=== PATIENT | female | born 1950 | race Caucasian/White ===

== ENCOUNTER → 2017-03-14 | Outpatient (CLI) | payer OTHER ==
[~2017-03-14] MED LIST: ALLEGRA180 MG PO; BACTRIM DS TAB1 EACH PO; CARDIZEM SR120 MG PO; CIPROFLOXACIN500 M1 PO; CYCLOBENZAPRINE10 MG PO; DIAZEPAM 10 MG10 M1 OR; DOXEPIN 10 MG C10 MG; FLUOXETINE HCL40 MG PO; LANTUS SC; NASONEX; NEO-POLYMYXIN-H10 ML OT; NORCO 5-325 TA1 EACH PO; PROZAC 20 MG20 M1 PO; PYRIDIUM200 MG PO; VICODIN; XALATAN2.5 ML OP
== END ==
LOC: CAT 11:49
DX: M81.0 Age-related osteoporosis without current pathological fracture (principal); I63.9 Cerebral infarction, unspecified; G31.9 Degenerative disease of nervous system, unspecified; M25.511 Pain in right shoulder; M79.641 Pain in right hand; R58 Hemorrhage, not elsewhere classified

== ENCOUNTER → 2017-11-12 | Outpatient (CLI) | payer OTHER | LOC: ULTRA 11:47 | DX: E01.0 Iodine-deficiency related diffuse (endemic) goiter (principal); R59.9 Enlarged lymph nodes, unspecified ==

== ENCOUNTER → 2018-02-11 | Outpatient (CLI) | payer OTHER | LOC: RAD 01:07 | DX: N63.10 Unspecified lump in the right breast, unspecified quadrant (principal); R92.2 Inconclusive mammogram; E11.9 Type 2 diabetes mellitus without complications; J45.909 Unspecified asthma, uncomplicated ==

== ENCOUNTER 2018-12-11 12:10 | Emergency (ER) | payer OTHER ==
[~2018-12-11] VITALS: Ht 147.3 cm; Wt 61.2 kg
[2018-12-11 12:50] LABS: BASOPHILS 0.7 % (0.0-2.0); EOSINOPHILS 0.5 % (0.0-3.0); HEMATOCRIT 38.7 % (37.0-47.0); HEMOGLOBIN 13.3 gm/dL (12.0-15.0); LYMPHOCYTES 41.9 % (24.0-44.0); MCH 30.3 pg (26.0-34.0); MCHC 34.4 g/dL (28.0-37.0); MCV 88.3 fL (80.0-100.0); PLATELET COUNT 327 thou/uL (150-400); POLYS 49.9 % (36.0-66.0); RBC 4.38 mil/uL (4.20-5.00); WBC 6.1 thou/uL (4.0-11.0)
[2018-12-11 13:00] LABS: ANION GAP 8 mmol/L (7-16); BUN 12 mg/dL (7-18); CALCIUM 9.2 mg/dL (8.5-10.1); CHLORIDE 99 mmol/L (98-107); CO2 27 mmol/L (21-32); CREATININE 0.8 mg/dL (0.6-1.0); GLUCOSE 136 mg/dL (74-106); POTASSIUM 3.5 mmol/L (3.5-5.1); SODIUM 134 mmol/L (136-145)
[2018-12-11 13:10] LABS: ALBUMIN 4.3 g/dL (3.4-5.0); SGOT 18 U/L (15-37); SGPT 20 U/L (30-65); TOTAL BILIRUBIN 0.2 mg/dL (<0.1-1.0); TOTAL PROTEIN 8.1 g/dL (6.4-8.2); TROPONIN-I <0.06 ng/mL (<0.06)
--- NOTE | 2018-12-11 13:54 | EKG ---
[place] [address] [facility] [place] [address] ELECTROCARDIOGRAM REPORT Name: KEL HARDWICK [id number] ������������������ Admission: 12/11/18 ������������������ Attend Phys: Discharge: ������������������ Date of : 50 Report #: [id number] ����������������������������������������������������������������� [id number] THIS REPORT FOR: //name// [facility] ED Test Date: 2018-12-11 Test Time: 12:26:29 Pat Name: KELKelly HARDWICK Department: Room: Gender: F Informatics Analyst: AMANDA : 1950 Requested By: Jorge Gates Order Number: [id number] MD: Shree Oviedo Measurements Intervals [place] Rate: 74 P: 43 WV: 167 QRS: -20 QRSD: 92 T: 3 QT: 405 QTc: 450 Interpretive Statements Sinus rhythm Probable left atrial enlargement RSR' in V1 or V2, probably normal variant Probable left ventricular hypertrophy Inferior infarct, old Compared to ECG 03/20/2007 11:44:22 RSR' in V1 or V2 now present Myocardial infarct finding now present Electronically Signed On 12-11-2018 13:54:25 CDT by Shree Oviedo [email or web address] ��������������������������������������������� <ELECTRONICALLY SIGNED> ���������������������������������������� By: Shree Oviedo MD ��������������������������������������������� 12/11/18 1354 1226 1226 Shree Oviedo MD /EPI
[2018-12-11 14:01] LABS: URINE BILIRUBIN NEGATIVE (Negative); URINE BLOOD NEGATIVE (Negative); URINE CLARITY CLEAR; URINE COLOR YELLOW; URINE GLUCOSE-RANDOM* NEGATIVE (Negative); URINE KETONES NEGATIVE (Negative); URINE LEUKOCYTES TRACE (Negative); URINE NITRITE NEGATIVE (Negative); URINE PROTEIN (DIPSTICK) NEGATIVE (Negative); URINE SPECIFIC GRAVITY <= 1.005 (1.005-1.035); URINE UROBILINOGEN 0.2 E.U./dl (0.2-1.0)
[2018-12-11] MEDS ORDERED: PREDNISONE 20 M20 MG PO ×2 (14:12→14:40)
[2018-12-11] MEDS ORDERED: VENTOLIN HFA 1818 GM INH (14:12)
[2018-12-11 14:43] VITALS: BP 165/72
== END 2018-12-11 14:43 | disposition home or self-care (01) ==
LOC: ER 12:10
PROVIDERS: Emergency Medicine
DX: J45.901 Unspecified asthma with (acute) exacerbation (principal); F41.9 Anxiety disorder, unspecified; E11.649 Type 2 diabetes mellitus with hypoglycemia without coma; E11.43 Type 2 diabetes mellitus with diabetic autonomic (poly)neuropathy; K31.84 Gastroparesis; M79.7 Fibromyalgia; M06.9 Rheumatoid arthritis, unspecified; M19.90 Unspecified osteoarthritis, unspecified site; F32.9 Major depressive disorder, single episode, unspecified; I10 Essential (primary) hypertension; I25.10 Atherosclerotic heart disease of native coronary artery without angina pectoris; Z87.891 Personal history of nicotine dependence; Z85.3 Personal history of malignant neoplasm of breast; Z91.041 Radiographic dye allergy status; Z88.8 Allergy status to other drugs, medicaments and biological substances